=== PATIENT | male | born 1995 | race Caucasian/White ===

== ENCOUNTER 2023-04-30 09:18 | Outpatient (CLI) | payer OTHER ==
--- NOTE | 2023-04-30 16:30 | XRAY Report ---
PROCEDURE: Foot 3 View BILAT INDICATIONS: XR FOOT PAIN TECHNIQUE: 3 views each of the right and left feet were acquired. COMPARISON: None. FINDINGS: Bones: No acute fractures or dislocations. No suspicious bony lesions. No significant arthritic c hanges. Soft tissues: No suspicious soft tissue calcifications or masses. IMPRESSION: No acute osseous abnormality. No significant arthritic changes. If symptoms persist or there is jadyn nued clinical concern, further evaluation with MRI or CT may be helpful. Reviewed by: Kristopher Bell MD on 04/30/2023 4:29 PM PDT Approved by: Kristopher Bell MD on 04/30/2023 4:29 PM PDT Station ID: [id number]
== END 2023-04-30 09:19 | disposition home or self-care (01) ==
LOC: DI 09:18
PROVIDERS: ATTEND Registered Nurse
DX: M79.673 Pain in unspecified foot (principal)